=== PATIENT | female | born 1970 | race Caucasian/White ===

== ENCOUNTER 2018-08-11 10:40 | Emergency (ER) | payer BC ==
[2018-08-11 10:53] VITALS: RESP 16
[2018-08-11] MEDS ORDERED: KETOROLAC TROMETHAMINE 30 MG/ML SOL IV ONE (11:06)
[2018-08-11] MEDS ORDERED: SODIUM CHLORIDE 0.9% 1000ML 1,000 ML IV ONE (11:07)
[2018-08-11] MEDS ORDERED: ONDANSETRON HCL 4 MG/2 ML SOL IV ONE (11:07)
[2018-08-11] MEDS ORDERED: MORPHINE SULFATE 10 MG/ML SOL IV ONE (11:07)
[2018-08-11] MEDS ORDERED: MORPHINE SULFATE 10 MG/ML SOL ONE (11:10)
[2018-08-11] MEDS ORDERED: KETOROLAC TROMETHAMINE 30 MG/ML SOL ONE (11:10)
[2018-08-11] MEDS ORDERED: ONDANSETRON HCL 4 MG/2 ML SOL ONE (11:11)
[2018-08-11 11:37] LABS: ALBUMIN 4.6 gm/dl (3.4-5.0); BILIRUBIN,TOTAL 0.6 mg/dl (0.2-1.0); CALCIUM 9.9 mg/dl (8.5-10.1); CARBON DIOXIDE 27.5 mEq/L (21-32); CREATININE 0.95 mg/dl (0.60-1.00); POTASSIUM 3.7 mMol/L (3.5-5.1); TOTAL PROTEIN 8.4 gm/dl (6.4-8.2)
[2018-08-11 11:39] LABS: APPEARANCE,URINE Slightly Cloudy; BILIRUBIN,URINE NEGATIVE (NEGATIVE); COLOR,URINE Yellow; GLUCOSE, URINE (UA) NEGATIVE (NEGATIVE); KETONES,URINE NEGATIVE (NEGATIVE); LEUKOCYTE ESTERASE ,URINE NEGATIVE (NEGATIVE); NITRATE,URINE NEGATIVE (NEGATIVE); OCCULT BLOOD,URINE 2+ (NEG-TRACE); PH,URINE 5.5; UROBILINOGEN,URINE 0.2 (0.2-1.0 EU)
[2018-08-11 11:55] LABS: BASOPHILS % (AUTO) 0 % (0-3); EOSINOPHILS % (AUTO) 0 % (0-9); HEMATOCRIT 45 % (35-47); HEMOGLOBIN 15.2 gm/dl (12.0-15.5); LYMPHOCYTES % (AUTO) 5.8 % (10-50); MEAN CORPUSCULAR HEMOGLOBIN 31.2 pg (27.0-32.0); MEAN CORPUSCULAR HGB CONC 33.6 gm/dl (32.0-36.0); MEAN CORPUSCULAR VOLUME 93 fL (81-99); MONOCYTES % (AUTO) 1.7 % (0-12)
[2018-08-11] MEDS ORDERED: HYDROMORPHONE 1 MG/ML SYRINGE IV PRN (12:08)
[2018-08-11] MEDS ORDERED: HYDROMORPHONE 1 MG/ML SYRINGE ONE (12:10)
[2018-08-11 12:12] LABS: BACTERIA 2+ (< 1+); CRYSTALS NEGATIVE (0-3 AVE/HPF); EPITHELIAL CELLS 0-4 (SQUAMOUS); WBC,URINE 0-2 (0-5AV/HPF)
[2018-08-11 14:06] VITALS: TEMP 97.1
[2018-08-11] MEDS ORDERED: DEXTROSE/SALINE 0.45% 1,000 ML IV SCH (14:45)
[2018-08-11 15:11] VITALS: BP 156/99; PULSE 87; O2SAT 100
== END 2018-08-11 15:05 | disposition short-term general hospital (02) ==
LOC: MERGE 10:40 → ED 10:40
DX: K80.20 Calculus of gallbladder without cholecystitis without obstruction (principal)
CPT/HCPCS: 36415; 74176; 80053; 81001; 84703; 85025; 96365; 96374; 96375; 99283; 99285; J1885; J2270; J2405; J1170